=== PATIENT | female | born 1935 | race Caucasian/White ===

== ENCOUNTER 2018-08-13 11:19 | Observation (INO) | payer MEDICARE, OTHER ==
[~2018-08-13] VITALS: Ht 160 cm; Wt 42.5 kg
[~2018-08-13 11:19] MED LIST: Aspir 8181 MG PO; DONE5 PO; HYDR1TAB94 PO; METO25ER PO; METO50ER PO; MULVITMINF; ULTRA-LIGHT RO1 EACH UD
[2018-08-13 12:47] LABS: BASOPHILS ABSOLUTE AUTO 0.03 K/mm3 (0.00-0.23); BASOPHILS PERCENT AUTO 0 % (0-2); EOSINOPHILS ABSOLUTE AUTO 0.12 K/mm3 (0.00-0.68); EOSINOPHILS PERCENT AUTO 2 % (0-6); Hematocrit 45.5 % (33.0-51.0); Hemoglobin 14.7 g/dL (11.5-16.0); IMMATURE GRAN ABSOLUTE AUTO 0.03 K/mm3 (0.00-0.10); IMMATURE GRAN PERCENT AUTO 0 % (0-1); LYMPHOCYTES PERCENT AUTO 16 % (21-46); MONOCYTES ABSOLUTE AUTO 0.61 K/mm3 (0.16-1.47); MONOCYTES PERCENT AUTO 7 % (4-13); Mean Corpuscular HGB 32.4 pg (26.0-34.0); Mean Corpuscular HGB Conc 32.3 g/dL (31.5-36.5); Mean Corpuscular Volume 100 fL (80-100); Mean Platelet Volume 9.8 fL (9.1-12.4); NEUTROPHILS ABSOLUTE AUTO 6.11 K/mm3 (1.96-9.15); NEUTROPHILS PERCENT AUTO 74 % (41-73); Platelet Count 221 K/mm3 (150-400); RDW Coefficient Variation 13.1 % (11.7-14.2); RDW Standard Deviation 48.7 fL (35.1-46.3); Red Blood Cell Count 4.54 M/mm3 (3.80-5.20)
[2018-08-13 13:11] LABS: Albumin, Blood 3.6 g/dL (3.4-5.0); Bilirubin, Total 0.4 mg/dL (0.1-1.0); Bun/Creatinine Ratio 38.5 (12.0-20.0); Creatinine, Blood 1.04 mg/dL (0.40-1.00); Globulin, Blood 3.6 g/dL (2.2-4.0); Potassium, Blood 4.2 mmol/L (3.5-5.5); Total Protein, Blood 7.2 g/dL (6.4-8.2)
[2018-08-13 16:38] LABS: Source, Urine Clean Catch
[2018-08-13 16:59] LABS: Bilirubin, Urine Neg (Neg); Blood, Urine 1+ (Neg); Glucose Qualitative, Urine Neg (Neg); Ketones, Urine 2+ (Neg); Leukocyte Esterase, Urine Neg (Neg); Nitrite, Urine Neg (Neg); Protein, Urine 3+ (Neg); Specific Gravity, Urine 1.025 (1.003-1.022); Urobilinogen, Urine NORM (Normal)
[2018-08-13 17:20] LABS: Appearance, Urine Hazy (Clear); Color, Urine Yellow (P-Yellow)
[2018-08-13 17:21] LABS: Amorphous Mod (0-Heavy); Bacteria Rare /hpf; Red Blood Cells, Urine 0-2 /hpf (0-2); Squamous Epithelial Cells Few /hpf (Few); White Blood Cells, Urine 0-2 /hpf (0-5)
--- NOTE | 2018-08-13 23:06 | NUR ---
09 83 Y/O FEMALE ADMITTED TO ROOM 349 PER STRETCHER FROM ER WITH DAUGHTER BONNY AT SIDE. DAUGHTER INTENDS SPEND NIGHT WITH MOTHER. DAUGHTER VOICED PT LIVES WITH HER AND HAS REFUSED TO TAKE ANY HOME MEDICATIONS FOR PAST YEAR PERSCRIBED BY FAMILY MD (MD IS AWARE). PT IS ALERT AND ORIENTED X 1, ABLE TO FOLLOW VERY SIMPLE VERBAL COMMANDS. PT DID EAT YOGURT THIS EVENING WITH ALL NIGHTLY SCHEDULED MEDICATIONS TAKEN (CRUSHED INTO YOGURT. THIS NURSE WAS UNABLE TO COMPLETE MEDICATION LIST DAUGHTER UNSURE WHAT MOTHER HAD BEEN TAKING. FAMILY WILL BRING COPY OF LIST IN AM. PTS BED ALARM APPLIED, BED LOW POSITION, CALL LIGHT AT SIDE. PT DENIES PAIN OR NAUSEA.
--- NOTE | 2018-08-14 05:17 | NUR ---
SHIFT SUMMARY: 83 Y/O FEMALE RESTED COMFORTABLY ALL NIGHT WITH DAUGHTER AT SIDE SLEEPING ON BED ALONGSIDE PATIENT. PT ALERT AND ORIENTED X 1 AND REQUIRED ASSISTANCE WITH BATHROOM X1 WITH GAIT SLOW AND SLIGHTLY UNSTEADY VIA WALKER. PT REMOVED GOWN AND TELEMETRY ONCE DURING SHIFT WITH HEART RATE MAINTAINING AT 80-90. PT DENIES PAIN OR NAUSEA. PTS BED ALARM APPLIED FOR SAFETY, BED LOW POSITION, CALL LIGHT AT SIDE.
[2018-08-14 05:20] LABS: Hematocrit 42.3 % (33.0-51.0); Hemoglobin 13.9 g/dL (11.5-16.0); Mean Corpuscular HGB Conc 32.9 g/dL (31.5-36.5); Mean Platelet Volume 10.1 fL (9.1-12.4); Platelet Count 224 K/mm3 (150-400); RDW Coefficient Variation 12.9 % (11.7-14.2); RDW Standard Deviation 46.5 fL (35.1-46.3); Red Blood Cell Count 4.35 M/mm3 (3.80-5.20)
[2018-08-14 05:24] LABS: Mean Corpuscular Volume 97 fL (80-100)
[2018-08-14 05:56] LABS: Albumin, Blood 3.4 g/dL (3.4-5.0); Albumin/Globulin Ratio 1.1 (0.8-1.8); Bilirubin, Total 0.8 mg/dL (0.1-1.0); Bun/Creatinine Ratio 31.7 (12.0-20.0); Creatinine, Blood 1.01 mg/dL (0.40-1.00); Globulin, Blood 3.2 g/dL (2.2-4.0); Potassium, Blood 3.7 mmol/L (3.5-5.5); Total Protein, Blood 6.6 g/dL (6.4-8.2)
--- NOTE | 2018-08-14 13:19 | NUR ---
Spiritual care visit conducted. Patient is sitting on a chair and alert. Patient openly shares just about everything that comes into her mind. Much of those thoughts don't match up with the conversation. Patient shifted just about every topic back to goats, chickens and ducks. Patient laughed often, stated positive things and appeared to feed off of a joyful environment. I was unable to have much depth of conversation but at least for the moments I was in the room the patient felt cared for, encouraged and happy. Patient showed signs of an elevated mood.
--- NOTE | 2018-08-14 13:55 | NUR ---
CALLED HOSPITALIST REQUESTING CLARIFICATION ON HIS WISHES REGARDING THE PT'S MEDICATIONS FOR TODAY. HE IS LOOKING OVER THE EMAR AND ENTERING NEW ORDERS.
--- NOTE | 2018-08-14 17:00 | NUR ---
PT DENIES ANY SUICIDE IDEATION STATES "I WON'T KILL MYSELF, I HAVE ALL MY ANIMALS THAT NEED ME TO FEED THEM". CALM, CONFUSED, COOPERATIVE. SITTING IN RECLINER. LAUGHING AND TALKING WITH SON IN ROOM.
--- NOTE | 2018-08-14 17:42 | NUR ---
SHIFT SUMMARY 83 YR OLD FEMALE ADMITTED FOR CVA/ACUTE ENCEPHALOPATHY. HER MED RECONCILIATION IS INCOMPLETE. I HAVE REQUESTED FAMILY TO BRING IN HER PRESCRIPTIONS TO NURSING STAFF. TAKES HER PILLS CRUSHED IN YOGURT. GERIATRIC PERSONAL CARE AIDE HAS HER A-FIB @ 80'S BPM. SHE LIVES W/HER . REGULAR DIET. HX: MD, A-FIB, CAD, HTN, DEMENTIA. DOES NOT NEED A FWW. SHOULD BE SUPERVISED DUE TO CONFUSION AND WANDERING. NO SKIN ISSUES. ROOM AIR.
--- NOTE | 2018-08-15 04:50 | NUR ---
BALANCE ENGINEER SUMMARY NO ACUTE CHANGES THIS SHIFT. PT REMAINS VERY CONFUSED, MAINLY ORIENTED TO SELF AND HER DAUGHTER WHO HAS STAYED AT THE BEDSIDE THROUGH THE NIGHT. PT IS PLEASANT BUT DOES STRUGGLE FOLLOWING DIRECTION AND NEEDS FREQUENT PROMPTING WHEN AMBULATING AND USING THE TOILET CORRECTLY. TELEMETRY HAS BEEN AFIB IN THE 70-80'S ON AVERAGE. CERTIFIED PHARMACY TECHNICIAN DID REPORT ON OCCASION HR WOULD TOUCH INTO 50'S WHILE PT WAS SLEEPING. PT IS A 1 ASSIST WITH FWW. GAIT IS UNSTEADY, BED ALARM ON FOR SAFETY. VSS, WILL CONTINUE TO MONITOR.
[2018-08-15 05:44] LABS: CHOL/HDL RATIO 3.3; Cholesterol 154 mg/dL (50-200); HDL Cholesterol 46 mg/dL (>39); LDL/HDL RATIO 2.1; Low Density Lipoprotein Chol 96 mg/dL (0-110); Triglycerides 58 mg/dL (30-160); Very Low Density Lipoprot Chol 11 mg/dL (6-32)
[2018-08-15] MEDS ORDERED: LO-DOSE ASPIRIN81 MG PO (14:36)
[2018-08-15] MEDS ORDERED: AMLO10 PO (14:36)
[2018-08-15] MEDS ORDERED: ATOR40TA PO (14:37)
[2018-08-15] MEDS ORDERED: XARELTO15 MG PO (14:38)
[2018-08-15] MEDS ORDERED: ABAT250V (14:38)
[2018-08-15] MEDS ORDERED: MEMA5TAB PO (14:38)
--- NOTE | 2018-08-15 14:44 | NUR ---
PT DISCHARGED VIA W/C POV WITH DAUGHTER. IV DISCONTINUED INTACT. MEDS [facility]ED [facility]. FAMILY VERBALIZED UNDERSTANDING OF DISCHARGE INSTRUCTIONS AND IMPORTANCE OF TAKING MEDICATIONS DIRECTED. ALL BELONGINGS WITH PATIENT AT TIME OF DISCHARGE.
== END 2018-08-15 14:35 | disposition home or self-care (01) ==
LOC: ER 11:19 → MEDS 19:16 → ENPENDDIS 08-15 12:06 → MEDS 08-15 14:35
PROVIDERS: Emergency Medicine; Internal Medicine; ADMIT Internal Medicine
DX: I63.512 Cerebral infarction due to unspecified occlusion or stenosis of left middle cerebral artery (principal); G93.40 Encephalopathy, unspecified; I48.91 Unspecified atrial fibrillation; F03.90 Unspecified dementia, unspecified severity, without behavioral disturbance, psychotic disturbance, mood disturbance, and anxiety; I10 Essential (primary) hypertension; I25.10 Atherosclerotic heart disease of native coronary artery without angina pectoris; I25.2 Old myocardial infarction; Z88.8 Allergy status to other drugs, medicaments and biological substances; Z87.891 Personal history of nicotine dependence
CPT/HCPCS: 36415; 70450; 80053; 80061; 81001; 85025; 85027; 93005; 93010; 93880; 96360; 96361; 97161; 97165; 97530; 99285-25; G0378; J1650; J7120; P9612